=== PATIENT | female | born 1970 | race Caucasian/White ===

== ENCOUNTER 2020-08-08 15:35 | Inpatient (IN) | payer SELFPAY ==
[2020-08-08 17:06] VITALS: BMI 28.0
[2020-08-08] MEDS ORDERED: Electrolyte Replacement Protocol 1 EACH FS SCH (18:30)
[2020-08-08] MEDS ORDERED: Electrolyte Replacement Protocol FS PRN (19:00)
[2020-08-08] MEDS: Sodium Chloride 0.9% 1,000 ML IV SCH (19:05)
[2020-08-08 19:14] LABS: Anion Gap 12 mmol/L (10-20); BUN (Urea Nitrogen) Less than 4 mg/dL (7.0-18.7); Calc. Creatinine Clearance 124 mL/min (70-130); Calcium 8.7 mg/dL (7.8-10.44); Carbon Dioxide 24 mmol/L (22-29); Chloride 97 mmol/L (98-107); Glucose 106 mg/dL (70-105); Magnesium 1.7 mg/dL (1.6-2.6); Potassium 3.3 mmol/L (3.5-5.1); Sodium 130 mmol/L (136-145)
[2020-08-08 19:19] LABS: Troponin I Less than 0.010 ng/mL (< 0.028)
[2020-08-08] MEDS: levETIRAcetam 500 MG TAB PO SCH (21:17)
[2020-08-08] MEDS: busPIRone HCl 10 MG TAB PO SCH (21:17)
[2020-08-08] MEDS ORDERED: Magnesium 2 GM/50 ML 2 GM in Premix Bag 1 BAG IVPB SCH (21:30)
[2020-08-08] MEDS ORDERED: Potassium Chloride 20 MEQ TAB PO SCH (21:30)
[2020-08-08] MEDS ORDERED: Ondansetron PF 4 MG/2 ML Vial IVP PRN (22:31)
[2020-08-09 00:22] LABS: SARS-CoV-2 PCR by NAA Not Detected (NotDetected)
[2020-08-09 05:34] LABS: ALT (SGPT) 49 U/L (8-55); AST (SGOT) 129 U/L (5-34); Albumin 3.2 g/dL (3.5-5.0); Alkaline Phosphatase 90 U/L (40-110); Anion Gap 11 mmol/L (10-20); BUN (Urea Nitrogen) 4 mg/dL (7.0-18.7); Bilirubin, Total 1.4 mg/dL (0.2-1.2); Calc. Creatinine Clearance 115 mL/min (70-130); Calcium 8.4 mg/dL (7.8-10.44); Carbon Dioxide 25 mmol/L (22-29); Chloride 103 mmol/L (98-107); Globulin 2.8 g/dL (2.4-3.5); Glucose 107 mg/dL (70-105); Potassium 3.4 mmol/L (3.5-5.1); Sodium 136 mmol/L (136-145)
[2020-08-09 05:36] LABS: #Eosinphils 0.1 thou/uL (0.0-0.7); #Lymphocytes 0.8 thou/uL (1.20-3.40); #Monocytes 0.5 thou/uL (0.11-0.59); #Neutrophils 2.5 thou/uL (1.40-6.50); %Basophils 0.6 % (0.0-1.0); %Eosinophils 2.3 % (0.0-10.0); %Lymphocytes 21.2 % (21.0-51.0); %Monocytes 12.4 % (0.0-10.0); %Neutrophils 63.5 % (42.0-75.0); Anisocytosis SLIGHT = 6-15 cells (100X) (0-5/hpf); Hemoglobin 8.3 g/dL (12.0-16.0); MDiff Complete? YES; Mean Corpuscular HGB CONC 31.2 g/dL (32.0-36.0); Mean Corpuscular Hemoglobin 28.3 pg (27.0-31.0); Mean Corpuscular Volume 90.6 fL (78.0-98.0); Mean Platelet Volume 7.8 fL (7.4-10.4); Platelet Count 145 thou/uL (130-400); RBC Distribution Width 19.5 % (11.5-14.5); Red Blood Cell (RBC) Count 2.92 mill/uL (4.20-5.40); White Blood Cell (WBC) Count 3.9 thou/uL (4.8-10.8)
[2020-08-09] MEDS ORDERED: Potassium Chloride 20 MEQ TAB PO SCH (06:45)
[2020-08-09] MEDS ORDERED: Magnesium 2 GM/50 ML 2 GM in Premix Bag 1 BAG IVPB SCH (06:45)
[2020-08-09] MEDS: busPIRone HCl 10 MG TAB PO SCH ×2 (08:52→20:09)
[2020-08-09] MEDS: Thiamine 100 MG TAB PO SCH (08:52)
[2020-08-09] MEDS: levETIRAcetam 500 MG TAB PO SCH ×2 (08:52→20:09)
[2020-08-09] MEDS: Bupropion 150 MG XL TAB PO SCH (08:52)
[2020-08-09] MEDS: Sodium Chloride 0.9% 1,000 ML IV SCH (08:54)
[2020-08-10] MEDS: Sodium Chloride 0.9% 1,000 ML IV SCH ×3 (00:31→21:24)
[2020-08-10 05:21] LABS: #Basophils 0.1 thou/uL (0.0-0.2); #Eosinphils 0.1 thou/uL (0.0-0.7); #Lymphocytes 1.3 thou/uL (1.20-3.40); #Monocytes 0.3 thou/uL (0.11-0.59); #Neutrophils 1.7 thou/uL (1.40-6.50); %Basophils 1.5 % (0.0-1.0); %Eosinophils 3.1 % (0.0-10.0); %Lymphocytes 37.1 % (21.0-51.0); %Monocytes 9.6 % (0.0-10.0); %Neutrophils 48.8 % (42.0-75.0); Hemoglobin 7.7 g/dL (12.0-16.0); Mean Corpuscular Hemoglobin 29.4 pg (27.0-31.0); Mean Platelet Volume 7.7 fL (7.4-10.4); Platelet Count 157 thou/uL (130-400); RBC Distribution Width 19.2 % (11.5-14.5); Red Blood Cell (RBC) Count 2.63 mill/uL (4.20-5.40); White Blood Cell (WBC) Count 3.5 thou/uL (4.8-10.8)
[2020-08-10 05:49] LABS: ALT (SGPT) 50 U/L (8-55); AST (SGOT) 123 U/L (5-34); Albumin 3.1 g/dL (3.5-5.0); Alkaline Phosphatase 79 U/L (40-110); Anion Gap 11 mmol/L (10-20); BUN (Urea Nitrogen) 6 mg/dL (7.0-18.7); Bilirubin, Total 0.6 mg/dL (0.2-1.2); Calc. Creatinine Clearance 129 mL/min (70-130); Calcium 7.8 mg/dL (7.8-10.44); Carbon Dioxide 24 mmol/L (22-29); Chloride 107 mmol/L (98-107); Globulin 2.5 g/dL (2.4-3.5); Glucose 96 mg/dL (70-105); Iron 9 ug/dL (50-170); Iron Binding Capacity, Total 284 mcg/dL (265-497); Potassium 3.6 mmol/L (3.5-5.1); Protein, Total 5.6 g/dL (6.0-8.3); Sodium 138 mmol/L (136-145); Transferrin, Serum 227 mg/dL (180-382)
[2020-08-10] MEDS ORDERED: Magnesium 2 GM/50 ML 2 GM in Premix Bag 1 BAG IVPB SCH (07:15)
[2020-08-10] MEDS: levETIRAcetam 500 MG TAB PO SCH ×2 (09:12→21:24)
[2020-08-10] MEDS: Bupropion 150 MG XL TAB PO SCH (09:12)
[2020-08-10] MEDS: busPIRone HCl 10 MG TAB PO SCH ×2 (09:12→21:24)
[2020-08-10] MEDS: Thiamine 100 MG TAB PO SCH (09:12)
[2020-08-10] MEDS: Pantoprazole 40 MG VIAL IVP SCH ×2 (10:53→21:23)
[2020-08-10] MEDS: Lorazepam 0.5 MG TAB PO PRN ×3 (10:54→22:27)
[2020-08-10] MEDS: Iron, Sodium Ferric Gluconate 250 MG in Sodium Chloride 0.9% 250 ML 250 ML IVPB SCH ×2 (12:49→22:27)
[2020-08-10] MEDS: Cholecalciferol 1,000 UNITS (25 MCG) TAB PO SCH (13:24)
[2020-08-10] MEDS ORDERED: Ferrous Sulfate 325 MG TAB PO SCH (17:00)
[2020-08-11] MEDS ORDERED: Morphine 2 MG/ML VIAL SLOW IVP PRN ×2 (01:02→01:53)
[2020-08-11] MEDS ORDERED: Nitroglycerin 0.4 MG TAB (25 Tab Bottle) SL PRN (01:38)
[2020-08-11] MEDS ORDERED: hydrALAZINE 20 MG/ML VIAL SLOW IVP PRN (01:38)
[2020-08-11] MEDS ORDERED: Lidocaine 2% Viscous Solution 10 ML, Aluminum & Magnesium Hydroxide 30 ML SSW SCH (01:45)
[2020-08-11 01:56] LABS: Troponin I Less than 0.010 ng/mL (< 0.028)
[2020-08-11] MEDS: Sodium Chloride 0.9% 1,000 ML IV SCH (02:03)
[2020-08-11 05:11] LABS: Hemoglobin 8.9 g/dL (12.0-16.0)
[2020-08-11] MEDS ORDERED: Magnesium 2 GM/50 ML 2 GM in Premix Bag 1 BAG IVPB SCH (08:15)
[2020-08-11] MEDS ORDERED: Ergocalciferol 1.25 MG(50,000 UNITS) CAP PO PRN (09:00)
[2020-08-11] MEDS ORDERED: PROPOFOL 200 MG/20 ML VIAL ONE (09:50)
[2020-08-11] MEDS ORDERED: Promethazine HCl 25 MG/ML VIAL SLOW IVP PRN (10:09)
[2020-08-11] MEDS ORDERED: Promethazine HCl 25 MG/ML VIAL IM PRN (10:09)
[2020-08-11] MEDS ORDERED: Ondansetron HCl/PF 4 MG/2 ML Vial IVP PRN (10:09)
[2020-08-11] MEDS: busPIRone HCl 10 MG TAB PO SCH (12:01)
[2020-08-11] MEDS: Pantoprazole 40 MG VIAL IVP SCH (12:01)
[2020-08-11] MEDS: Thiamine 100 MG TAB PO SCH (12:01)
[2020-08-11] MEDS: levETIRAcetam 500 MG TAB PO SCH (12:01)
[2020-08-11 12:09] VITALS: BP 120/78; TEMP 98.3
[2020-08-11] MEDS: Bupropion 150 MG XL TAB PO SCH (14:19)
== END 2020-08-11 16:16 | disposition home or self-care (01) | DRG 101 ==
LOC: 2SW 16:41 → OBSVTOIN 08-10 07:28 → 2SW 08-11 10:45
PROVIDERS: ADMIT Internal Medicine; ATTEND Internal Medicine
PROC: 0DJ08ZZ Inspection of Upper Intestinal Tract, Via Natural or Artificial Opening Endoscopic (ICD-10-PCS; principal; 2020-08-11)
DX: G40.909 Epilepsy, unspecified, not intractable, without status epilepticus (principal); I47.1 Supraventricular tachycardia; E87.1 Hypo-osmolality and hyponatremia; Z20.822 Contact with and (suspected) exposure to COVID-19; D50.9 Iron deficiency anemia, unspecified; K25.9 Gastric ulcer, unspecified as acute or chronic, without hemorrhage or perforation; E83.42 Hypomagnesemia; R74.01 Elevation of levels of liver transaminase levels; D72.819 Decreased white blood cell count, unspecified; K63.5 Polyp of colon; F32.9 Major depressive disorder, single episode, unspecified; F41.9 Anxiety disorder, unspecified; E78.00 Pure hypercholesterolemia, unspecified; F17.210 Nicotine dependence, cigarettes, uncomplicated; E87.6 Hypokalemia; Z98.84 Bariatric surgery status; Z90.710 Acquired absence of both cervix and uterus; Z79.899 Other long term (current) drug therapy; Z90.49 Acquired absence of other specified parts of digestive tract
CPT/HCPCS: 36415; 70551; 80053; 82274; 82728; 83540; 83550; 83735; 84466; 84484; 85014; 85018; 85025; 93005; 93010; 93306; 93880; 95712; 95819; 95957; 96365; C9113; G0378; J2270; J2405; J2704; J2916; J3475; J7050; U0003; U0005

== ENCOUNTER 2020-12-11 07:33 | Day surgery (SDC) | payer SELFPAY ==
[2020-12-10 11:01] VITALS: BMI 26.6
[2020-12-11] MEDS ORDERED: Fentanyl 100 MCG/2 ML VIAL ONE (08:44)
[2020-12-11] MEDS ORDERED: PROPOFOL 200 MG/20 ML VIAL ONE (08:57)
== END 2020-12-11 10:38 | disposition home or self-care (01) ==
LOC: SDC 07:33
PROVIDERS: ATTEND Internal Medicine Gastroenterology
PROC: 0D758ZZ Dilation of Esophagus, Via Natural or Artificial Opening Endoscopic (ICD-10-PCS; principal; 2020-12-11)
DX: K25.3 Acute gastric ulcer without hemorrhage or perforation (principal); D50.9 Iron deficiency anemia, unspecified; I10 Essential (primary) hypertension; Z86.16 Personal history of COVID-19
CPT/HCPCS: J2704; J3010